=== PATIENT | male | born 1965 | race Caucasian/White ===

== ENCOUNTER 2018-04-05 17:00 | Outpatient (CLI) | payer OTHER ==
[2018-04-05 17:05] LABS: Hemoglobin 14.7 g/dL (14.0-18.0); Mean Corpuscular HGB CONC 34.2 g/dL (32.0-36.0); Mean Corpuscular Hemoglobin 31.4 pg (27.0-31.0); Mean Corpuscular Volume 91.8 fl (80.0-94.0); Mean Platelet Volume 7.3 fL (7.4-10.4); Platelet Count 245 thou/uL (130-400); RBC Distribution Width 11.5 % (11.5-14.5); Red Blood Cell (RBC) Count 4.68 mill/uL (4.70-6.10); White Blood Cell (WBC) Count 7.5 thou/uL (4.8-10.8)
[2018-04-05 17:11] LABS: PTT 25.5 SEC (22.9-36.1); Prothrombin Time 13.6 SEC (12.0-14.7)
[2018-04-05 17:25] LABS: Anion Gap 11 mmol/L (10-20); BUN (Urea Nitrogen) 19 mg/dL (8.4-25.7); Calc. Creatinine Clearance 0 mL/min (70-130); Calcium 9.3 mg/dL (7.8-10.44); Carbon Dioxide 26 mmol/L (22-29); Chloride 105 mmol/L (98-107); Estimated GFR-MDRD Greater than 90; Glucose 94 mg/dL (70-105); Potassium 3.8 mmol/L (3.5-5.1); Sodium 138 mmol/L (136-145)
--- NOTE | 2018-04-06 14:32 | EKG ---
Test Reason : Blood Pressure : / mmHG Vent. Rate : 085 BPM Atrial Rate : 085 BPM P-R Int : 158 ms QRS Dur : 094 ms QT Int : 348 ms P-R-T Axes : 049 008 001 degrees QTc Int : 414 ms Poor data quality, interpretation may be adversely affected Normal sinus rhythm T wave abnormality, consider inferior ischemia Abnormal ECG No previous ECGs available Confirmed by DR. Calin PERDOMO ([id number]) on 04/06/2018 2:32:17 PM Referred By: BINU Confirmed By:DR. Calin PERDOMO
== END 2018-04-05 17:01 | disposition home or self-care (01) ==
LOC: LABBT 17:00
PROVIDERS: ATTEND Surgery
DX: Z01.818 Encounter for other preprocedural examination (principal); M48.02 Spinal stenosis, cervical region; M54.12 Radiculopathy, cervical region; R94.31 Abnormal electrocardiogram [ECG] [EKG]
CPT/HCPCS: 80048; 85027; 85610; 85730; 93005; 93010

== ENCOUNTER 2018-04-27 10:59 | Emergency (ER) | payer OTHER ==
[2018-04-27] MEDS ORDERED: Morphine 4 MG/ML VIAL ONE ×2 (12:27)
[2018-04-27] MEDS ORDERED: methylPREDNISolone Sod Succ/PF 125 MG/2 ML VIAL ONE (12:27)
== END 2018-04-27 13:14 | disposition home or self-care (01) ==
LOC: ERS 10:59
DX: M54.5 Low back pain (principal); X50.1XXA Overexertion from prolonged static or awkward postures, initial encounter
CPT/HCPCS: 96372; J2270; J2930

== ENCOUNTER 2020-05-26 15:03 | Emergency (ER) | payer OTHER | END 2020-05-26 15:40 | disposition home or self-care (01) | LOC: ERS 15:03 | DX: R09.81 Nasal congestion (principal); I10 Essential (primary) hypertension; Z20.828 Contact with and (suspected) exposure to other viral communicable diseases; Z79.82 Long term (current) use of aspirin; Z79.899 Other long term (current) drug therapy | CPT/HCPCS: 87635; 99283; U0003 ==

== ENCOUNTER 2023-07-28 07:21 | Outpatient (CLI) | payer BC ==
[2023-07-28 09:26] LABS: Hematocrit 46.7 % (38.8-50.0); Hemoglobin 15.9 g/dL (13.5-17.5); Mean Platelet Volume 11.2 fl (7.4-10.4); Platelet Count 194 10x3/uL (150-450); RBC Distribution Width 12.4 % (11.5-14.5); Red Blood Cell (RBC) Count 4.97 10x6/uL (4.32-5.72); White Blood Cell (WBC) Count 5.3 10x3/uL (3.5-10.5)
[2023-07-28 09:39] LABS: INR-International Normal Ratio 0.9; Prothrombin Time 10.2 sec (9.5-12.1)
== END 2023-07-28 07:22 | disposition home or self-care (01) ==
LOC: LABBT 07:21
PROVIDERS: ATTEND Neurological Surgery
DX: Z01.818 Encounter for other preprocedural examination (principal); M43.16 Spondylolisthesis, lumbar region; M48.062 Spinal stenosis, lumbar region with neurogenic claudication
CPT/HCPCS: 85027; 85610; 85730

== ENCOUNTER 2023-07-31 05:31 | Observation (INO) | payer BC ==
[2023-07-28 07:52] VITALS: BMI 29.7
[2023-07-31] MEDS ORDERED: Bupivacaine PF 0.5% 30 ML VIAL ONE (06:10)
[2023-07-31] MEDS ORDERED: Thrombin 5000 UNITS/5 ML VIAL ONE (06:10)
[2023-07-31] MEDS ORDERED: EPINEPHrine 1 MG/ML AMP ONE (06:10)
[2023-07-31] MEDS ORDERED: Vancomycin 1 GM VIAL ONE (06:10)
[2023-07-31] MEDS ORDERED: diphenhydrAMINE 50 MG/ML VIAL IVP PRN (06:18)
[2023-07-31] MEDS ORDERED: Morphine 2 MG/ML VIAL SLOW IVP PRN (06:18)
[2023-07-31] MEDS ORDERED: Prochlorperazine 10 MG/2 ML VIAL IM PRN (06:18)
[2023-07-31] MEDS ORDERED: Milk Of Magnesia 30 ML UDCUP PO PRN (06:18)
[2023-07-31] MEDS ORDERED: Ondansetron PF 4 MG/2 ML Vial IVP PRN (06:18)
[2023-07-31] MEDS ORDERED: Mag-Al 1200 mg/1200 mg/30 ML UDCUP PO PRN (06:18)
[2023-07-31] MEDS ORDERED: HYDROcodone/Acetaminophen 7.5/325 mg Tablet PO PRN (06:18)
[2023-07-31] MEDS ORDERED: Acetaminophen/Codeine 30-300mg Tablet PO PRN (06:18)
[2023-07-31] MEDS ORDERED: Acetaminophen 325 MG TAB PO PRN (06:18)
[2023-07-31] MEDS ORDERED: tiZANidine HCl 4 MG TAB PO PRN (06:21)
[2023-07-31] MEDS ORDERED: Sodium Chloride 0.9% 100 ML ONE (06:38)
[2023-07-31] MEDS ORDERED: CEFAZOLIN 2 GM VIAL ONE (06:38)
[2023-07-31] MEDS ORDERED: fentaNYL PF 100 MCG/2 ML SYRINGE ONE (06:54)
[2023-07-31] MEDS ORDERED: Magnesium 5 GM/10 ML VIAL ONE (06:54)
[2023-07-31] MEDS ORDERED: Dexmedetomidine 200 MCG/2 ML VIAL ONE (06:54)
[2023-07-31] MEDS ORDERED: Dexamethasone 20 MG/5 ML VIAL ONE (07:07)
[2023-07-31] MEDS ORDERED: NEOSTIGMINE 3 MG/3 ML SYR 3 MG/3 ML SYRINGE ONE (07:07)
[2023-07-31] MEDS ORDERED: PROPOFOL 200 MG/20 ML VIAL ONE (07:07)
[2023-07-31] MEDS ORDERED: Rocuronium Bromide 10 MG/ML (10ML VIAL) ONE (07:07)
[2023-07-31] MEDS ORDERED: Glycopyrrolate 0.2 MG/ML 5 ML SYRINGE ONE (07:07)
[2023-07-31] MEDS ORDERED: ePHEDrine Sulfate 50 MG/10 ML VIAL ONE (07:07)
[2023-07-31] MEDS ORDERED: Ondansetron PF 4 MG/2 ML Vial ONE (07:07)
[2023-07-31] MEDS ORDERED: Rocuronium Bromide 50 MG/5 ML VIAL ONE (08:54)
[2023-07-31] MEDS ORDERED: HYDROmorphone 2 MG/ML VIAL ONE (09:13)
[2023-07-31] MEDS ORDERED: Ondansetron HCl/PF 4 MG/2 ML Vial IVP PRN (12:20)
[2023-07-31] MEDS ORDERED: Promethazine HCl 25 MG/ML VIAL IM PRN (12:20)
[2023-07-31] MEDS ORDERED: HYDROmorphone 2 MG/ML VIAL SLOW IVP PRN (12:20)
[2023-07-31] MEDS ORDERED: tiZANidine HCl 4 MG TAB ONE (12:44)
[2023-07-31] MEDS ORDERED: Fentanyl 250 MCG/5 ML VIAL ONE (12:46)
[2023-07-31] MEDS ORDERED: HYDROmorphone 0.5 MG/0.5 ML SYRINGE ONE (12:52)
[2023-07-31] MEDS: Atorvastatin Calcium 10 MG TAB PO SCH (14:21)
[2023-07-31] MEDS: Losartan 25 MG TAB PO SCH (14:21)
[2023-07-31] MEDS: Sodium Chloride 0.9% 1,000 ML IV SCH ×2 (14:21→21:45)
[2023-07-31] MEDS: HYDROcodone/Acetaminophen 10/325 mg Tablet PO PRN ×3 (15:19→22:02)
[2023-07-31] MEDS: CEFAZOLIN 2 GM in Sodium Chloride 0.9% 100 ML IVPB SCH (18:45)
[2023-08-01] MEDS: CEFAZOLIN 2 GM in Sodium Chloride 0.9% 100 ML IVPB SCH (03:16)
[2023-08-01 06:22] LABS: #Monocytes 1.1 thou/uL (0.11-0.59); #Neutrophils 7.7 thou/uL (1.40-6.50); %Basophils 0.1 % (0.0-1.0); %Lymphocytes 17.7 % (21.0-51.0); %Monocytes 10.1 % (0.0-10.0); %Neutrophils 71.8 % (42.0-75.0); Hematocrit 37.1 % (42.0-52.0); Hemoglobin 12.8 g/dL (14.0-18.0); Mean Corpuscular HGB CONC 34.5 g/dL (32.0-36.0); Mean Corpuscular Hemoglobin 32.7 pg (27.0-31.0); Mean Corpuscular Volume 94.9 fl (78.0-98.0); Mean Platelet Volume 10.5 fL (7.4-10.4); Platelet Count 160 10x3/uL (130-400); RBC Distribution Width 12.4 % (11.5-14.5); Red Blood Cell (RBC) Count 3.91 mill/uL (4.70-6.10); White Blood Cell (WBC) Count 10.7 10x3/uL (4.8-10.8)
[2023-08-01 06:50] LABS: Anion Gap 10 mmol/L (10-20); BUN (Urea Nitrogen) 10 mg/dL (8.4-25.7); Calc. Creatinine Clearance 153 mL/min (70-130); Calcium 8.4 mg/dL (7.8-10.44); Carbon Dioxide 27 mmol/L (22-29); Chloride 105 mmol/L (98-107); Estimated GFR 104; Glucose 131 mg/dL (70-105); Potassium 3.7 mmol/L (3.5-5.1); Sodium 138 mmol/L (136-145)
[2023-08-01] MEDS: HYDROcodone/Acetaminophen 10/325 mg Tablet PO PRN ×2 (08:02→12:33)
[2023-08-01] MEDS: Atorvastatin Calcium 10 MG TAB PO SCH (08:03)
[2023-08-01] MEDS: Losartan 25 MG TAB PO SCH (08:03)
[2023-08-01] MEDS: Sodium Chloride 0.9% 1,000 ML IV SCH (08:14)
[2023-08-01 13:01] VITALS: BP 118/70; TEMP 99.3
== END 2023-08-01 13:30 | disposition home or self-care (01) ==
LOC: SDC 05:31 → SURG A 06:18
PROVIDERS: ADMIT Neurological Surgery; ATTEND Neurological Surgery
PROC: 0SG00K1 Fusion of Lumbar Vertebral Joint with Nonautologous Tissue Substitute, Posterior Approach, Posterior Column, Open Approach (ICD-10-PCS; principal; 2023-07-31)
PROC: 0SG30K1 Fusion of Lumbosacral Joint with Nonautologous Tissue Substitute, Posterior Approach, Posterior Column, Open Approach (ICD-10-PCS; 2023-07-31)
DX: M43.16 Spondylolisthesis, lumbar region (principal); M54.16 Radiculopathy, lumbar region; M48.062 Spinal stenosis, lumbar region with neurogenic claudication; I10 Essential (primary) hypertension; Z98.890 Other specified postprocedural states; Z79.82 Long term (current) use of aspirin; Z79.899 Other long term (current) drug therapy
CPT/HCPCS: 36415; 80048; 85025; A4314; C1713; C1889; J0171; J1100; J1170; J2405; J2704; J3010; J3370; J3475; J3490; S0020